=== PATIENT | female | born 1965 | race American Indian/Alaskan Native ===

== ENCOUNTER 2019-05-16 10:32 | Inpatient (IN) | payer OTHER ==
--- NOTE | 2019-05-16 10:43 | Emergency Department Report ---
HPI - General Time Seen by Provider: 05/16/19 10:38 - HPI HPI: Charge nurse triage --> 18 The patient is a 53-year-old female present with a chief complaint of right- sided weakness. The patient states she went to sleep last night at approximately 23: 00 in her normal state of health and this morning at 09: 00 when she awakened she had right-sided weakness and numbness. Patient states she had difficulty typing with her right hand secondary to the weakness in her right leg felt as though she had "slept on it." ED Past Medical Hx - Past Medical History Previous Medical History?: No Hx Hypertension: Yes - Family History Family history: no significant ED Review of Systems ROS: Stated complaint: POSS STROKE Other details as noted in HPI Constitutional: no symptoms reported Eyes: denies: eye pain ENT: denies: throat pain Respiratory: no symptoms reported Endocrine: no symptoms reported Genitourinary: denies: dysuria Musculoskeletal: denies: back pain Neurological: weakness, paresthesias Physical Exam - Physical Exam Physical Exam: GENERAL: The patient is well-developed well-nourished female sitting on stretcher not appearing to be in acute distress. [] HEENT: Normocephalic. Atraumatic. Extraocular motions are intact. Patient has moist mucous membranes. NECK: Supple. Trachea midline CHEST/LUNGS: Clear to auscultation. There is no respiratory distress noted. HEART/CARDIOVASCULAR: Regular. There is no tachycardia. There is no gallop rub or murmur. ABDOMEN: Abdomen is soft, nontender. Patient has normal bowel sounds. There is no abdominal distention. SKIN: There is no rash. There is no edema. There is no diaphoresis. NEURO: The patient is awake, alert, and oriented. The patient is cooperative. The patient exhibits difficulty raising her right upper extremity and flexing right lower extremity at the hip and knee.. The patient has normal speech. GCS 15 MUSCULOSKELETAL: There is no evidence of acute injury. ED Course - Consultations Consultation #1: 05/16/19 16:22 [facility] hub called-voicemail left explaining how patient requests to stay here at [facility] instead of transfer to [facility] and states she will use her secondary insurance ED Medical Decision Making - Lab Data Result diagrams: 05/16/19 11:25 05/16/19 11:25 Laboratory Tests 05/16/19 05/16/19 05/16/19 11:25 11:25 11:25 WBC 4.2 L RBC 4.27 Hgb 13.2 Hct 40.3 MCV 95 MCH 31 MCHC 33 RDW 13.7 Plt Count 205 Lymph % (Auto) 40.4 H Wilcox % (Auto) 6.7 Eos % (Auto) 1.9 Baso % (Auto) 0.9 Lymph # 1.7 Wilcox # 0.3 Eos # 0.1 Baso # 0.0 Seg Neutrophils % 50.1 Seg Neutrophils # 2.1 PT 13.4 INR 1.01 APTT 32.4 Thrombin Time 15.4 Sodium 142 Potassium 3.9 Chloride 104.4 Carbon Dioxide 19 L Anion Gap 23 BUN 10 Creatinine 0.7 Estimated GFR > 60 BUN/Creatinine Ratio 14 Glucose 93 Calcium 9.5 - EKG Data -: EKG Interpreted by Ny EKG shows normal: sinus rhythm Rate: normal - EKG Data When compared to previous EKG there are: previous EKG unavailable Interpretation: normal EKG - Radiology Data Radiology results: report reviewed (CT head, CTA brain and neck), image reviewed (CT head, CTA brain and neck) Findings [facility] [address] [place] [address] Cat Scan Report Signed Patient: LASHELL LOPEZ MR#: [id number] : 1965 Acct:[id number] Age/Sex: 53 / F ADM Date: 05/16/19 Loc: ED Attending Dr: Ordering Physician: SAURABH VO MD Date of Service: 05/16/19 Procedure(s): CT head/brain wo con Accession Number(s): [id number] cc: SAURABH VO MD NONENHANCED CT SCAN OF THE BRAIN: INDICATION: MAIN: CODE STROKE CALL [phone] Awakened with right-sided weakness. TECHNIQUE: Routine CT head without contrast. Sagittal and coronal reformatted images were obtained. All CT scans at this location are performed using CT dose reduction for ALARA by means of automated exposure control. COMPARISON: None. FINDINGS: BRAIN / INTRACRANIAL CONTENTS: Hemorrhage:No intracranial hemorrhage; no subarachnoid hemorrhage Stroke mimics: No subdural or epidural hematoma or space taking lesion Acute/s ubacute territorial infarction: Fink-white matter interface: No blurring; normal Insular cortex: Normal Basal ganglia: Normal Wedge shaped parenchymal low density area: Not present Cortical sulci: Not effaced Lacunar infarctions: None Vasculopathy: Dense middle cerebral artery sign: Not present Internal carotid artery terminus: Normal Basilar artery:Normal Middle cerebral artery branches in the sylvian fissure (Dot sign): Since increased CT attenuation seen in the middle cerebral artery branches bilaterally, I am considering this to be insignificant. Calcified embolus: Not present ASPECT score: Not applicable Chronic lesions:None White matter: Normal Craniocervical junction:No significant abnormality Orbits:No significant abnormality Paranasal sinuses/mastoids:No significant abnormality Additional findings: Minimal scalp thickening in the left supraorbital region IMPRESSION: No acute subacute infarction This exam was performed as part of a code stroke protocol. The exam was completed at [facility] on 05/16/2019 10:18 AM. The exam was reviewed at 10:20 AM Central daylight saving time and ER physician was notified at 10:23 AM Central daylight saving time. Signer Name: Aubrie Lazar MD Signed: 05/16/2019 11:24 AM Workstation Name: [id number] Transcribed By: BS Dictated By: Aubrie Johnston MD Electronically Authenticated By: Aubrie Johnston MD Signed Date/Time: 05/16/19 1124 DD/ 1118 TD/TT: [place] [address] Cat Scan Report Signed Patient: LASHELL LOPEZ MR#: [id number] : 1965 Acct:[id number] Age/Sex: 53 / F ADM Date: 05/16/19 Loc: ED Attending Dr: Ordering Physician: EDILSON MONTANO MD Date of Service: 05/16/19 Procedure(s): CT angio neck Accession Number(s): [id number] cc: EDILSON MONTANO MD CTA HEAD WITH CONTRAST HISTORY: Right sided weakness COMPARISON: None. TECHNIQUE: Routine non-contrast CT Head, CTA of the head and post-contrast CT Head are performed. 3-D/MIP reformats postprocessed. All CT scans at this location are performed using CT dose reduction for ALARA by means of automated exposure control CONTRAST: 100 ml of Omnipaque 350 FINDINGS: CTA Head: Intracranial vertebral arteries: No significant abnormality. Basilar artery: No significant abnormality. Posterior cerebral arteries: No significant abnormality. Intracranial internal carotid arteries: No significant abnormality. Anterior cerebral arteries: No significant abnormality. Middle cerebral arteries: No significant abnormality. Dural venous sinuses:Not optimally opacified. No significant abnormality. Additional findings: None. IMPRESSION: 1. No significant abnormality. Signer Name: Aubrie Lazar MD Signed: 05/16/2019 2:27 PM Workstation Name: [id number] Transcribed By: BS Dictated By: Aubrie Johnston MD Electronically Authenticated By: Aubrie Johnston MD Signed Date/Time: 05/16/191426 DD/ 20 TD/TT: - Differential Diagnosis CVA, hypertensive emergency, ICH, TIA Critical care attestation.: If time is entered above; I have spent that time in minutes in the direct care of this critically ill patient, excluding procedure time. ED Disposition Clinical Impression: CVA (cerebral vascular accident) Disposition: OP ADMIT IP TO THIS HOSP Is pt being admited?: Yes Does the pt Need Aspirin: Yes Condition: Fair Referrals: RAYMOND SHARP MD [Primary Care Provider] - 3-5 Days Time of Disposition: 16:23 (Hospitalist paged (Dr العراقي))
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
--- NOTE | 2019-05-16 11:29 | Cat Scan Report ---
NONENHANCED CT SCAN OF THE BRAIN: INDICATION: MAIN: CODE STROKE CALL [phone] Awakened with right-sided weakness. TECHNIQUE: Routine CT head without contrast. Sagittal and coronal reformatted images were obtained. A ll CT scans at this location are performed using CT dose reduction for ALARA by means of automated ex posure control. COMPARISON: None. FINDINGS: BRAIN / INTRACRANIAL CONTENTS: Hemorrhage:No intracranial hemorrhage; no subarachnoid hemorrhage Stroke mimics: No subdural or epidural hematoma or space taking lesion Acute/subacute territorial infarction: Fink-white matter interface: No blurring; normal Insular cortex: Normal Basal ganglia: Normal Wedge shaped parenchymal low density area: Not present Cortical sulci: Not effaced Lacunar infarctions: None Vasculopathy: Dense middle cerebral artery sign: Not present Internal carotid artery terminus: Normal Basilar artery:Normal Middle cerebral artery branches in the sylvian fissure (Dot sign): Since increased CT attenuation seen in the middle cerebral artery branches bilaterally, I am considering this to be insignificant. Calcified embolus: Not present ASPECT score: Not applicable Chronic lesions:None White matter: Normal Craniocervical junction:No significant abnormality Orbits:No significant abnormality Paranasal sinuses/mastoids:No significant abnormality Additional findings: Minimal scalp thickening in the left supraorbital region IMPRESSION: No acute subacute infarction This exam was performed as part of a code stroke protocol. The exam was completed at [facility] on 05/16/2019 10:18 AM. The exam was reviewed at 10:20 AM Central daylight saving laura e and ER physician was notified at 10:23 AM Central daylight saving time. Signer Name: Aubrie Lazar MD Signed: 05/16/2019 11:24 AM Workstation Name: [id number]
[2019-05-16 12:15] LABS: Basophils % (Auto) 0.9 % (0.0-1.8); Eosinophils # (Auto) 0.1 K/mm3 (0.0-0.4); Eosinophils % (Auto) 1.9 % (0.0-4.3); Hematocrit 40.3 % (30.3-42.9); Hemoglobin 13.2 gm/dl (10.1-14.3); Lymphocytes # (Auto) 1.7 K/mm3 (1.2-5.4); Lymphocytes % (Auto) 40.4 % (13.4-35.0); Mean Corpuscular HGB Conc 33 % (30-34); Mean Corpuscular Volume 95 fl (79-97); Monocytes # (Auto) 0.3 K/mm3 (0.0-0.8); Monocytes % (Auto) 6.7 % (0.0-7.3); Platelet Count 205 K/mm3 (140-440); Red Blood Count 4.27 M/mm3 (3.65-5.03); Red Cell Distribution Width 13.7 % (13.2-15.2)
[2019-05-16 12:27] LABS: INR 1.01 (0.87-1.13)
[2019-05-16 12:29] LABS: Partial Thromboplastin Time 32.4 Sec. (24.2-36.6); Thrombin Time 15.4 Sec. (15.1-19.6)
[2019-05-16 12:37] LABS: BUN/Creatinine Ratio 14; Blood Urea Nitrogen 10 mg/dL (7-17); Calcium 9.5 mg/dL (8.4-10.2); Hemolysis Index 10
--- NOTE | 2019-05-16 14:26 | Cat Scan Report ---
CTA NECK WITH CONTRAST HISTORY: Stroke COMPARISON: None. TECHNIQUE: Routine CTA of the neck was performed. 3-D/MIP reformats were postprocessed. Percentage s tenosis is determined by direct quantitative measurements of diseased internal carotid artery diamete r compared with normal distal internal carotid artery reference segments or by criteria similar to NA SCET where applicable.All CT scans at this location are performed using CT dose reduction for ALARA b y means of automated exposure control CONTRAST: 100 ml of Omnipaque 350 FINDINGS: Aortic arch: No significant abnormality. Cervical vertebral arteries: No significant abnormality. Common carotid arteries: No significant abnormality. Carotid bifurcations: No significant abnormality Cervical internal carotid arteries: No significant abnormality. Additional findings: None. IMPRESSION: 1. No significant abnormality. Signer Name: Aubrie Lazar MD Signed: 05/16/2019 2:21 PM Workstation Name: [id number]
--- NOTE | 2019-05-16 14:32 | Cat Scan Report ---
CTA HEAD WITH CONTRAST HISTORY: Right sided weakness COMPARISON: None. TECHNIQUE: Routine non-contrast CT Head, CTA of the head and post-contrast CT Head are performed. 3-D /MIP reformats postprocessed. All CT scans at this location are performed using CT dose reduction for ALARA by means of automated exposure control CONTRAST: 100 ml of Omnipaque 350 FINDINGS: CTA Head: Intracranial vertebral arteries: No significant abnormality. Basilar artery: No significant abnormality. Posterior cerebral arteries: No significant abnormality. Intracranial internal carotid arteries: No significant abnormality. Anterior cerebral arteries: No significant abnormality. Middle cerebral arteries: No significant abnormality. Dural venous sinuses:Not optimally opacified. No significant abnormality. Additional findings: None. IMPRESSION: 1. No significant abnormality. Signer Name: Aubrie Lazar MD Signed: 05/16/2019 2:27 PM Workstation Name: [id number]
[2019-05-16] MEDS ORDERED: hydrALAZINE 20 MG/1 ML INJ IV ONE (15:54)
[2019-05-16] MEDS ORDERED: ASPIRIN 325 MG TAB PO ONE (16:20)
--- NOTE | 2019-05-17 01:42 | Event Note ---
Date: 05/16/19 See history and physical in the reports Acute CVA with right ryne-plegia
[2019-05-17] MEDS ORDERED: HYDROmorphone 1 MG/1 ML INJ IV PRN (01:46)
[2019-05-17] MEDS ORDERED: oxyCODONE /ACETAMINOPHEN 5-325MG TAB PO PRN (01:46)
[2019-05-17] MEDS ORDERED: ACETAMINOPHEN 325 MG TAB PO PRN (01:46)
[2019-05-17] MEDS ORDERED: ONDANSETRON 4 MG/2 ML INJ IV PRN (01:46)
--- NOTE | 2019-05-17 01:55 | History and Physical Report ---
CHIEF COMPLAINT: Right-sided weakness since 9:00 am HISTORY OF PRESENT ILLNESS: A 53-year-old with history of hypertension, noticed right-sided weakness at 9:00 a.m. when she woke up from sleep. The patient was normal at 2300 hours last night when she went to sleep. She had difficulty typing with right hand secondary to weakness in the right hand. Also right leg felt as if it was heavy and could not lift it fully. Able to walk with great difficulty and stumbling. No previous episodes. No fever. No exposure to coronavirus. PAST MEDICAL HISTORY: Hypertension. FAMILY HISTORY: Significant for hypertension. PAST SURGICAL HISTORY: None. SOCIAL HISTORY: Does not smoke. REVIEW OF SYSTEMS: Significant for right-sided weakness. No dysarthria. No nasal regurgitation of fluids. PHYSICAL EXAMINATION: GENERAL: Middle-aged female, cooperative during examination. VITAL SIGNS: Blood pressure is 189/97, temperature is 98.6, pulse is 95, respirations are 18. HEENT: Unremarkable. Right facial droop present. NECK: Supple, no lymphadenopathy, no thyromegaly. LUNGS: Clear to auscultation and percussion. Good air entry. CARDIOVASCULAR: S1, S2 heard. No gallop, no murmur, no rub. Apical impulse in left fifth intercostal space and midclavicular line. ABDOMEN: Soft and benign. No hepatosplenomegaly. No guarding, no rigidity. Hernial orifices are normal. EXTREMITIES: Right upper extremity and right lower extremity weakness present. A 3/5 power. CENTRAL NERVOUS SYSTEM: Also significant for right hemiparesis to hemiplegia. Power is 3/5 in right upper extremity and also power is 3/5 in right lower extremity. Gait could not be tested because the patient has weakness on the right side. Also, right facial palsy. Reflexes are brisk on the right side. LABORATORY DATA: Normal. Head CT shows no acute or subacute infarction. Neck CT angiogram shows no significant abnormality. Head CTA shows no significant abnormality. ASSESSMENT AND PLAN: 1. Acute cerebrovascular accident with right hemiplegia to hemiparesis. The patient to get CVA protocol. The patient to get MRI brain. MRA brain is not necessary. Also, echocardiogram and carotid duplex scan. 2. Hypertension. The patient initiated on valsartan 160 mg daily. 3. Hyperlipidemia. Continue statins. 4. Deep venous thrombosis prophylaxis, heparin 5000 q. 12 hours. Neurology consult requested. JOB# [id number] VSShun/NII TAVARES
[2019-05-17] MEDS ORDERED: SODIUM CHLORIDE 0.9% 1000 ML 1,000 ML IV SCH (02:00)
[2019-05-17] MEDS: VALSARTAN 40 MG TAB PO SCH ×2 (02:53→10:18)
[2019-05-17] MEDS: ASPIRIN 325 MG TAB PO SCH (10:18)
--- NOTE | 2019-05-17 10:50 | Magnetic Resonance Report ---
NONENHANCED MR SCAN OF THE BRAIN: INDICATION / CLINICAL INFORMATION: MAIN: stroke right sided weakness. TECHNIQUE: Multiplanar, multisequence MR images of the brain obtained. COMPARISON: CT scan of the head from 05/16/2019 FINDINGS: BRAIN / INTRACRANIAL CONTENTS: Subacute infarction is seen in the right basal ganglia involving the p osterior putamen, posterior limb of left internal capsule, rawls radiata and body of left caudate. T his infarction is more than 2 levels old (increased T2 signal intensity) but less than 3 days old (lo w ADC values). In the gradient echo images, no susceptibility changes seen. This would exclude hemorr hagic changes. Even in retrospect, this infarction is not seen in the CT scan from yesterday. Brainstem and cerebellar hemispheres are normal. Scattered deep hemispheric white matter lesions are seen (Fazekas 0) probably due to chronic small ve ssel disease. CRANIOCERVICAL JUNCTION: No significant abnormality. VASCULAR FLOW-VOIDS: No significant abnormality. No definite large vessel occlusion. ORBITS: No significant abnormality of visualized orbits. SINUSES / MASTOIDS: No significant abnormality of visualized sinuses and mastoid air cells. ADDITIONAL FINDINGS: None. IMPRESSION: Subacute nonhemorrhagic left basal ganglia infarction extending into the posterior limb of left inter nal capsule Signer Name: Aubrie Lazar MD Signed: 05/17/2019 10:46 AM Workstation Name: [id number]
--- NOTE | 2019-05-17 11:03 | Progress Note ---
Assessment and Plan Assessment and plan: Acute ischemic stroke With right sided weakness Admitted to [facility] Echo, carotid doppler Neurology consulted Check lipid panel Neurochecks History PUI?: No Hospitalist Physical - Physical exam Narrative exam: GEN: Not in acute distress HEENT: Normocephalic, atraumatic, Neck: supple, No JVD Lungs:clear to ausculotation, no crackles, heart;S1 and S2 reg, no murmurs, rubs or gallop Abd:soft, non tender, not distended, normal bowel sounds Ext: No edema, no clubbing, no cyanosis, Neuro:Awake,alert,oriented X 3, mild right hemiparesis 4/5 - Constitutional Vitals: Temp Pulse Resp BP Pulse Ox 98.4 F 70 18 160/89 97 05/17/19 03:42 05/17/19 10:18 05/17/19 03:42 05/17/19 10:18 05/17/19 03:42 Results - Labs CBC & Chem 7: 05/16/19 11:25 05/16/19 11:25 Labs: Laboratory Last Values WBC 4.2 K/mm3 (4.5-11.0) L 05/16/19 11:25 RBC 4.27 M/mm3 (3.65-5.03) 05/16/19 11:25 Hgb 13.2 gm/dl (10.1-14.3) 05/16/19 11:25 Hct 40.3 % (30.3-42.9) 05/16/19 11:25 MCV 95 fl (79-97) 05/16/19 11:25 MCH 31 pg (28-32) 05/16/19 11:25 MCHC 33 % (30-34) 05/16/19 11:25 RDW 13.7 % (13.2-15.2) 05/16/19 11:25 Plt Count 205 K/mm3 (140-440) 05/16/19 11:25 Lymph % (Auto) 40.4 % (13.4-35.0) H 05/16/19 11:25 Esmeralda % (Auto) 6.7 % (0.0-7.3) 05/16/19 11:25 Eos % (Auto) 1.9 % (0.0-4.3) 05/16/19 11:25 Baso % (Auto) 0.9 % (0.0-1.8) 05/16/19 11:25 Lymph # 1.7 K/mm3 (1.2-5.4) 05/16/19 11:25 Esmeralda # 0.3 K/mm3 (0.0-0.8) 05/16/19 11:25 Eos # 0.1 K/mm3 (0.0-0.4) 05/16/19 11:25 Baso # 0.0 K/mm3 (0.0-0.1) 05/16/19 11:25 Seg Neutrophils % 50.1 % (40.0-70.0) 05/16/19 11: Seg Neutrophils # 2.1 K/mm3 (1.8-7.7) 05/16/19 11:25 PT 13.4 Sec. (12.2-14.9) 05/16/19 11:25 INR 1.01 (0.87-1.13) 05/16/19 11:25 APTT 32.4 Sec. (24.2-36.6) 05/16/19 11:25 Thrombin Time 15.4 Sec. (15.1-19.6) 05/16/19 11:25 Sodium 142 mmol/L (137-145) 05/16/19 11:25 Potassium 3.9 mmol/L (3.6-5.0) 05/16/19 11:25 Chloride 104.4 mmol/L (98-107) 05/16/19 11:25 Carbon Dioxide 19 mmol/L (22-30) L 05/16/19 11:25 Anion Gap 23 mmol/L 05/16/19 11:25 BUN 10 mg/dL (7-17) 05/16/19 11:25 Creatinine 0.7 mg/dL (0.7-1.2) 05/16/19 11:25 Estimated GFR > 60 ml/min 05/16/19 11:25 BUN/Creatinine Ratio 14 % 05/16/19 11:25 Glucose 93 mg/dL (65-100) 05/16/19 11:25 POC Glucose 92 (70-105) 05/16/19 11:46 Hemoglobin A1c 5.3 % (4-6) 05/16/19 11:25 Calcium 9.5 mg/dL (8.4-10.2) 05/16/19 11:25 Alvarez/IV: Voiding Method Toilet IV Catheter Type [Right INT / Saline Lock Antecubital] Active Medications - Current Medications Current Medications: Generic Name Dose Route Start Last Admin Trade Name Freq PRN Reason Stop Dose Admin Acetaminophen 650 mg 05/17/19 01:46 05/17/19 02:57 Tylenol PO 650 mg Q4H PRN Administration Pain MILD(1-3)/Fever >100.5/GRIFFIN Aspirin 325 mg 05/17/19 10:00 05/17/19 10:18 Aspirin PO 325 mg QDAY ARMINDA Administration Atorvastatin Calcium 40 mg 05/17/19 22:00 Lipitor PO QHS ARMINDA Hydromorphone HCl 0.5 mg 05/17/19 01:46 Dilaudid IV Q3H PRN Pain , Severe (7-10) Sodium Chloride 1,000 mls @ 75 mls/hr 05/17/19 02:00 05/17/19 03:06 Nacl 0.9% 1000 Ml IV 05/17/19 14:00 75 mls/hr DIRECT ARMINDA Administration Ondansetron HCl 4 mg 05/17/19 01:46 Zofran IV Q8H PRN Nausea And Vomiting Oxycodone/Acetaminophen 1 tab 05/17/19 01:46 Percocet 5/325 PO Q6H PRN Pain, Moderate (4-6) Sodium Chloride 10 ml 05/17/19 10:00 05/17/19 10:18 Sodium Chloride Flush Syringe 10 Ml IV 10 ml BID ARMINDA Administration Sodium Chloride 10 ml 05/17/19 01:46 Sodium Chloride Flush Syringe 10 Ml IV PRN PRN LINE FLUSH Valsartan 80 mg 05/17/19 01:50 05/17/19 10:18 Diovan PO 80 mg QDAY ARMINDA Administration
--- NOTE | 2019-05-17 12:27 | Progress Note ---
Subjective Date of service: 05/17/19 Interval history: patient seen and the MRI is very suggestive of acute ischemic stroke there is no evidence of multiple sclerosis this is very suggestive of small vessel ischemic stroke advise asa lipid lowering agent went over the MRA and CT as well as the MRI PUI?: No Objective - Vital Sign Vital Signs - 12hr 05/17/19 05/17/19 05/17/19 02:53 03:42 08:00 Temperature 98.4 F Pulse Rate 73 74 Pulse Rate [ Left Dorsalis Pedis] Pulse Rate [ Right Dorsalis Pedis] Pulse Rate [ Right Radial] Respiratory 18 Rate Blood Pressure 174/97 148/93 O2 Sat by Pulse 97 Oximetry 05/17/19 05/17/19 09:00 10:18 Temperature Pulse Rate 70 Pulse Rate [ 74 Left Dorsalis Pedis] Pulse Rate [ 74 Right Dorsalis Pedis] Pulse Rate [ 74 Right Radial] Respiratory Rate Blood Pressure 160/89 O2 Sat by Pulse 99 Oximetry - Laboratory Findings CBC and BMP: 05/16/19 11:25 05/16/19 11:25 Abnormal Lab Findings: Abnormal Labs 05/16/19 05/16/19 11:25 11:25 WBC 4.2 L Lymph % (Auto) 40.4 H Carbon Dioxide 19 L
--- NOTE | 2019-05-17 14:55 | Consultation ---
HISTORY OF PRESENT ILLNESS: This is a 53-year-old black female who presents to [facility] at the acute onset of problems with the right-sided weakness, difficulty with speech. She apparently had gone to sleep after initially developing the symptoms and then later had worsening problems. She was transferred to [facility] because of weakness of her right side. When she presented to the hospital, she was noted to have glucose of 205. She had a hematocrit of 46. She had sodium of 142, a subsequent glucose of 93 and was initially felt to have an acute stroke. I did review her initial CT scan of the head, which was essentially unremarkable. The head MRI and MRA, no significant abnormality was noted on the MRA of the head. I have reviewed her MRI scan of the brain and this showed a very discrete area of the deep white matter infarct in the deep white matter of the left cerebral hemisphere, in the posterior limb of the internal capsule, in the centrum semiovale and within the leg area of the internal capsule, motor decussation, left hemisphere. This is well circumscribed. I do not think that this has any of the appearance of being multiple sclerosis given this configuration; this does not have any associated hemorrhage. On my examination, she has weakness of her right side. She has a slight speech slurring and slowness. Cranial nerves are otherwise intact. No central facial weakness is noted. Neck is supple. Ocular movements are full. No tremors or asterixis. No seizure activity present. IMPRESSION: Acute ischemic stroke, left cerebral hemisphere, has all the appearance of being hypertensive small vessel disease. I do not think this represents a tumor. There is no bleeding associated with this. I would recommend control of blood pressure, lipid-lowering agent and use of low-dose aspirin therapy. The patient's condition should be self-limited. This is not typically an area of an embolic stroke, but nonetheless I would check her carotid artery ultrasound and echocardiogram for comorbid issues. We will follow the patient with you. JOB# [id number] NALINI/NII
[2019-05-17] MEDS ORDERED: hydrALAZINE 20 MG/1 ML INJ IV PRN (16:58)
[2019-05-17] MEDS ORDERED: ENOXAPARIN 40 MG/0.4 ML INJ SUB-Q SCH (22:00)
[2019-05-18 05:54] LABS: Basophils % (Auto) 0.8 % (0.0-1.8); Eosinophils # (Auto) 0.1 K/mm3 (0.0-0.4); Eosinophils % (Auto) 2.6 % (0.0-4.3); Hematocrit 37.9 % (30.3-42.9); Hemoglobin 12.6 gm/dl (10.1-14.3); Lymphocytes # (Auto) 1.9 K/mm3 (1.2-5.4); Lymphocytes % (Auto) 46.8 % (13.4-35.0); Mean Corpuscular HGB Conc 33 % (30-34); Mean Corpuscular Volume 94 fl (79-97); Monocytes # (Auto) 0.3 K/mm3 (0.0-0.8); Platelet Count 194 K/mm3 (140-440); Red Blood Count 4.05 M/mm3 (3.65-5.03); Red Cell Distribution Width 13.7 % (13.2-15.2)
[2019-05-18 06:54] LABS: Alanine Aminotransferase 24 units/L (7-56); Albumin 4.1 g/dL (3.9-5); BUN/Creatinine Ratio 19; Blood Urea Nitrogen 13 mg/dL (7-17); Calcium 9.4 mg/dL (8.4-10.2); Chol/HDL Ratio 3.67 %; HDL Cholesterol 49 mg/dL (40-59); Hemolysis Index 5; LDL Cholesterol,Direct 118 mg/dL (50-130)
[2019-05-18] MEDS: VALSARTAN 40 MG TAB PO SCH (09:29)
[2019-05-18] MEDS: ASPIRIN 325 MG TAB PO SCH (09:29)
[2019-05-18] MEDS ORDERED: hydrALAZINE 25 MG TAB PO SCH (11:00)
[2019-05-18] MEDS ORDERED: amLODIPine 5 MG TAB PO SCH (11:00)
[2019-05-18 11:18] VITALS: BP 171/98
--- NOTE | 2019-05-18 11:28 | Discharge Summary ---
Providers - Providers Date of Admission: 05/16/19 16:26 Date of discharge: 05/18/19 Attending physician: BOB LYNCH 05/17/19 01:46 Consult to Physician [CONS] Routine Comment: Consulting Provider: ROSIBEL SMITH Physician Instructions: Reason For Exam: CVA 05/17/19 01:47 Occupational Therapy Evaluate and Treat [CONS] Routine Comment: Reason For Exam: Neuro deficits Physical Therapy Evaluation and Treat [CONS] Routine Comment: Reason For Exam: Neuro deficits [facility]: Fair Disposition: DC-01 TO HOME OR SELFCARE Core Measure Documentation - Palliative Care Palliative Care/ Comfort Measures: Not Applicable - Core Measures Any of the following diagnoses?: stroke - Stroke Discharge Requirements Statin for LDL = or >70 mg/dl on DC: Yes Anticoag for atrial fib/atrial flutter: Not Applicable Antithrombotic for ischemic stroke: Yes Exam - Constitutional Vitals: Temp Pulse Resp BP Pulse Ox 98.0 F 79 15 171/98 92 05/18/19 07:41 05/18/19 11:18 05/18/19 07:49 05/18/19 11:18 05/18/19 09:27 Plan Activity: advance as tolerated Diet: low fat, low cholesterol, low salt Plan of Treatment: 1.Follow up with PCP in 1-2 weeks. Follow up with: GARY CROWLOS ANGELES MD ANICETO [Primary Care Provider] - 3-5 Days Prescriptions: Aspirin EC [Ecotrin] 325 mg PO QDAY #30 tablet. AtorvaSTATin [Lipitor] 40 mg PO QHS #30 tablet
== END 2019-05-18 15:12 | disposition home or self-care (01) | DRG 65 ==
LOC: ED 10:32 → 4A 16:26
PROVIDERS: ADMIT Internal Medicine; ATTEND Internal Medicine
DX: I63.89 Other cerebral infarction (principal); G81.91 Hemiplegia, unspecified affecting right dominant side; I10 Essential (primary) hypertension; E78.5 Hyperlipidemia, unspecified; Z79.899 Other long term (current) drug therapy
CPT/HCPCS: 36415; 70450; 70496; 70498; 70551; 80048; 80053; 80061; 82962; 83036; 85025; 85610; 85670; 85730; 93005; 93010; 93306; G0378; A9270-GY; J0360; J1650; J7030; Q9967